=== PATIENT | female | born 1980 | race Caucasian/White ===

== ENCOUNTER 2020-08-09 13:54 | Observation (INO) | payer MEDICAID ==
[~2020-08-09] VITALS: Ht 160 cm; Wt 89.4 kg
[~2020-08-09 13:54] MED LIST: BISA-81 PO; FERR-63 PO; IBUP-2029 PO; MULT-44 PO; PREN-127 PO
[2020-08-09 15:22] LABS: CLARITY URINE CLEAR (CLEAR); COLOR URINE YELLOW (YELLOW); KETONES URINE 1+ (NEGATIVE); LEUKOCYTE ESTERASE URINE TRACE (NEGATIVE); NITRITE URINE NEGATIVE (NEGATIVE); OCCULT BLOOD URINE NEGATIVE (NEGATIVE); PH URINE 5.5 (4.5-8.0); PROTEIN URINE 2+ (NEGATIVE); SPECIFIC GRAVITY URINE 1.029 (1.005-1.030)
[2020-08-09 15:32] LABS: BASOPHILS % 0.9 % (0.0-2.0); CHLORIDE 111 mEq/L (98-107); EOSINOPHILS % 0.9 % (0.0-5.0); HEMATOCRIT. 28.3 % (36.0-48.0); HEMOGLOBIN. 9.3 g/dL (12.0-16.0); LYMPHOCYTES % 18.9 % (20.0-50.0); MEAN CORPUSCULAR VOLUME 72.6 fL (81.0-99.0); MONOCYTES % 12.6 % (2.0-8.0); NEUTROPHILS % 66.7 % (40.0-76.0); PLATELET 141 x1000/uL (130-400); RED CELL DISTRIBUTION WIDTH 19.2 % (11.6-14.6)
[2020-08-13] MEDS ORDERED: NORE0.3520 MT (06:54)
[2020-08-13] MEDS ORDERED: LABE100T5 PO (06:54)
[2020-08-13] MEDS ORDERED: IBUP-2030 PO (06:54)
[2020-08-13] MEDS ORDERED: FERR325T6 MT (06:54)
== END 2020-08-09 20:00 | disposition home or self-care (01) ==
LOC: 8 EST LDRP 13:54
PROVIDERS: ADMIT Obstetrics & Gynecology; ATTEND Obstetrics & Gynecology
DX: O42.92 Full-term premature rupture of membranes, unspecified as to length of time between rupture and onset of labor (principal); O26.893 Other specified pregnancy related conditions, third trimester; R03.0 Elevated blood-pressure reading, without diagnosis of hypertension; Z3A.37 37 weeks gestation of pregnancy; Z79.899 Other long term (current) drug therapy
CPT/HCPCS: 36415; 59025; 76805; 76818; 80053; 81003; 83036; 85025; G0378

== ENCOUNTER 2021-03-20 22:03 | Emergency (ER) | payer MEDICAID ==
[~2021-03-20] VITALS: Ht 157.5 cm; Wt 68.0 kg
[~2021-03-20 22:03] MED LIST changes: -BISA-81 PO; -FERR-63 PO; +FERR325T6 MT; -IBUP-2029 PO; +IBUP-2030 PO; +LABE100T5 PO; -MULT-44 PO; +NORE0.3520 MT
[2021-03-20] MEDS ORDERED: KETOROLAC 60MG/2ML VIAL IM ONE (22:30)
[2021-03-20] MEDS ORDERED: HYDROCODONE/ACETAMINOPHEN 10/325MG TABLET PO ONE (23:15)
[2021-03-21] MEDS ORDERED: NAPR500T7 MT (00:38)
[2021-03-21 00:49] VITALS: BP 110/75
== END 2021-03-21 00:51 | disposition home or self-care (01) ==
LOC: ER 22:03
DX: S40.012A Contusion of left shoulder, initial encounter (principal); W01.0XXA Fall on same level from slipping, tripping and stumbling without subsequent striking against object, initial encounter; Y93.89 Activity, other specified; Y92.89 Other specified places as the place of occurrence of the external cause; Y99.8 Other external cause status; Z79.899 Other long term (current) drug therapy
CPT/HCPCS: 73010; 73030; 81025; 99284; J1885

== ENCOUNTER 2021-12-11 15:08 | Observation (INO) | payer MEDICAID ==
[~2021-12-11 15:08] MED LIST changes: +NAPR500T7 MT
== END 2021-12-11 17:40 | disposition home or self-care (01) ==
LOC: 8 EST LDRP 15:08
PROVIDERS: ADMIT Obstetrics & Gynecology; ATTEND Obstetrics & Gynecology
DX: O36.8130 Decreased fetal movements, third trimester, not applicable or unspecified (principal); O09.523 Supervision of elderly multigravida, third trimester; Z3A.35 35 weeks gestation of pregnancy
CPT/HCPCS: 59025; 76815; 76818; G0378; 99281

== ENCOUNTER 2021-12-19 06:41 | Observation (INO) | payer MEDICAID ==
[~2021-12-19] VITALS: Ht 154.9 cm; Wt 95.3 kg
[2021-12-19] MEDS ORDERED: LACTATED RINGERS 1,000 ML IV SCH (07:30)
[2021-12-19] MEDS ORDERED: METF-873 PO (07:55)
[2021-12-27] MEDS ORDERED: IBUP-2030 PO (06:57)
== END 2021-12-19 09:35 | disposition home or self-care (01) ==
LOC: 8 EST LDRP 06:41
PROVIDERS: ADMIT Obstetrics & Gynecology; ATTEND Obstetrics & Gynecology
DX: O62.9 Abnormality of forces of labor, unspecified (principal); O24.419 Gestational diabetes mellitus in pregnancy, unspecified control; O09.523 Supervision of elderly multigravida, third trimester; Z3A.36 36 weeks gestation of pregnancy
CPT/HCPCS: 59025; 76805; 76818; 96360; 96361; G0378; 99281